=== PATIENT | female | born 1985 | race Hispanic/Latino ===

== ENCOUNTER 2017-08-01 13:08 | Emergency (ER) | payer MEDICAID ==
[2017-08-01] MEDS ORDERED: IBUPROFEN 600 MG TABLET ONE (15:27)
== END 2017-08-01 16:01 | disposition home or self-care (01) ==
LOC: EDH 13:08
DX: S63.502A Unspecified sprain of left wrist, initial encounter (principal); I10 Essential (primary) hypertension; Z98.890 Other specified postprocedural states; W22.8XXA Striking against or struck by other objects, initial encounter; Y93.89 Activity, other specified; Y92.098 Other place in other non-institutional residence as the place of occurrence of the external cause; Y99.8 Other external cause status
CPT/HCPCS: 73110

== ENCOUNTER 2022-10-03 14:06 | Emergency (ER) | payer BC ==
[~2022-10-03] VITALS: Ht 149.9 cm; Wt 113.4 kg
[2022-10-03] MEDS ORDERED: ACETAMINOPHEN 500 MG TABLET PO ONE (17:30)
[2022-10-03] MEDS ORDERED: CYCL5TAB PO (19:35)
[2022-10-03] MEDS ORDERED: NAPR-1180 PO (19:35)
[2022-10-03 19:51] VITALS: BP 138/64
== END 2022-10-03 19:52 | disposition home or self-care (01) ==
LOC: EDH 14:06
DX: S39.012A Strain of muscle, fascia and tendon of lower back, initial encounter (principal); I10 Essential (primary) hypertension; Z88.5 Allergy status to narcotic agent; W19.XXXA Unspecified fall, initial encounter; Y93.89 Activity, other specified; Y92.89 Other specified places as the place of occurrence of the external cause; Y99.8 Other external cause status
CPT/HCPCS: 72070; 72100